=== PATIENT | male | born 1980 | race Caucasian/White ===

== ENCOUNTER → 2017-11-06 | Outpatient (CLI) | payer OTHER ==
--- NOTE | 2017-11-07 08:48 | MR ---
EXAMINATION TYPE: MR knee LT wo con DATE OF EXAM: 11/06/2017 COMPARISON: None HISTORY: Left knee pain, injured while playing softball 3 weeks ago TECHNIQUE: Multiplanar, multisequence imaging of the left knee is performed without IV contrast. FINDINGS: MEDIAL MENISCUS: Anterior and posterior horns are intact without tear. LATERAL MENISCUS: Anterior and posterior horns are intact without tear. CRUCIATE LIGAMENTS: The anterior and posterior cruciate ligaments are intact and unremarkable. COLLATERAL LIGAMENTS: The medial collateral ligament and lateral collateral ligament complex are inta ct and unremarkable. EXTENSOR MECHANISM: Visualized quadriceps and patellar tendons are intact. EFFUSION: No significant suprapatellar joint effusion. POPLITEAL CYST: No popliteal/cullen cyst. TRICOMPARTMENT SPACES: Maintained CARTILAGE: Intact BONE MARROW SIGNAL: No focal abnormal marrow signal is appreciated. OTHER: Subcutaneous edema is diffuse, correlate for ecchymosis. IMPRESSION: No evident internal derangement of the left knee. Extensive subcutaneous edema versus possible ecchym osis.
== END | disposition home or self-care (01) ==
LOC: RADMRIMAIN 17:42
PROVIDERS: ATTEND Family Medicine
DX: S89.92XA Unspecified injury of left lower leg, initial encounter (principal)